=== PATIENT | male | born 1940 | race Caucasian/White ===

== ENCOUNTER → 2018-10-10 | Outpatient (REF) | payer MEDICARE, OTHER ==
[~2018-10-10] MED LIST: ALLOPURINOL300 MG PO; AMLOD/BENAZP1 CA2 PO; AMOXICILLIN500 MG PO; ATENOLOL100 MG PO; AUGMENTIN875TAB PO; BABY ASPIRIN81 MG PO; CELEBREX200 MG PO; EQL IBUPROFEN200 MG PO; FLOMAX0.4 M1 PO; FLUZONE SPLT1 M1 IM; HYDROCHLORO25 MG/TAB PO; LASIX 10 MG10 MG/TA1 PO; LIPITOR20 MG PO; LISINOP/HCTZ1 TA1 PO; LISINOP/HCTZ1 TA2 PO; LISINOPRIL10 MG PO; LOVENOX SC; METFORMIN1000 MG PO; METFORMIN500 M2 PO; NITROGLYCER0.4 MG SL; PLAVIX75 MG PO; PRADAXA150 MG PO; SAW PALMETTO450 MG OR; TENORMIN50 MG PO; TRAMADOL HCL50 MG PO; [UNRECOGNIZED DRUG - OTHER] OR
[2018-10-10 09:13] LABS: HEMATOCRIT 42.4 % (39.0-50.0); HEMOGLOBIN 13.2 g/dl (14.0-18.0); MEAN CELL VOLUME 95.7 fL CALC (80.0-100.0); MEAN CORPUSCULAR HGB 29.8 pG CALC (26.0-32.0); MEAN CORPUSCULAR HGB CONC 31.1 g/L CALC (32.0-36.0); RED BLOOD COUNT 4.43 mill/uL (4.70-6.10); RED CELL DISTRI WIDTH 14.6 % (11.5-15.5)
[2018-10-10 09:43] LABS: ALBUMIN 3.7 g/dL (3.2-5.0); BILIRUBIN, TOTAL 0.8 mg/dL (0.0-1.4); TOTAL PROTEIN 6.8 g/dL (6.3-8.2)
[2018-10-10 09:49] LABS: POTASSIUM 5.2 mmol/l (3.5-5.1)
== END | disposition home or self-care (01) ==
LOC: LAB 07:47
PROVIDERS: ATTEND Internal Medicine
DX: E11.22 Type 2 diabetes mellitus with diabetic chronic kidney disease (principal)

== ENCOUNTER 2019-12-15 | Emergency (ER) | payer MEDICARE, OTHER ==
[~2019-12-15] MED LIST changes: +ASPIRINCHW 81MG PO; -BABY ASPIRIN81 MG PO
[2019-12-15 05:47] LABS: HEMATOCRIT 42.1 % (39.0-50.0); HEMOGLOBIN 13.1 g/dl (14.0-18.0); IMMATURE GRANULOCYTES 0.8 % (0.0-5.0); MEAN CELL VOLUME 92.7 fL CALC (80.0-100.0); MEAN CORPUSCULAR HGB 28.9 pG CALC (26.0-32.0); MEAN CORPUSCULAR HGB CONC 31.1 g/dL CAL (32.0-36.0); NEUT# 9.28 thou/uL (1.82-7.42); RED BLOOD COUNT 4.54 mill/uL (4.70-6.10); RED CELL DISTRI WIDTH 15.9 % (11.5-15.5)
[2019-12-15 05:52] LABS: URINE BILIRUBIN - DIPSTICK NEGATIVE (NEGATIVE); URINE BLOOD DIPSTICK LARGE (NEGATIVE); URINE COLOR YELLOW; URINE GLUCOSE - DIPSTICK NEGATIVE (NEGATIVE); URINE KETONE NEGATIVE (NEGATIVE); URINE NITRITE - DIPSTICK NEGATIVE (Negative); URINE PH 5.5 (4.5-8.0); URINE PROTEIN - DIPSTICK TRACE mg/dL (NEG-TRACE); URINE UROBILINOGEN - DIPSTICK 0.2 E.U./dL (0.2)
[2019-12-15 05:57] LABS: URINE LEUK ESTERASE NEGATIVE (NEGATIVE)
[2019-12-15 05:58] LABS: URINE EPITHELIAL CELLS MODERATE EPI/hpf (0-FEW); URINE RBC 25-50 RBC/hpf (0-5)
[2019-12-15 05:59] LABS: URINE BACTERIA FEW hpf; URINE YEAST FEW hpf
[2019-12-15 06:00] LABS: COCAINE NEGATIVE (NEGATIVE); METHADONE NEGATIVE (NEGATIVE); TETRAHYDROCANNABIONOL NEGATIVE (NEGATIVE); TRICYLIC ANTIDEPRESSANTS POSITIVE (NEGATIVE)
[2019-12-15 06:01] LABS: BARBITURATES NEGATIVE (NEGATIVE); OXCYCODONE NEGATIVE (NEGATIVE)
[2019-12-15 06:11] LABS: ACT PARTIAL THROMBO TIME 35.6 SECONDS (20.0-32.5)
[2019-12-15 06:14] LABS: ALBUMIN 3.8 g/dL (3.2-5.0); ALKALINE PHOSPHATASE 147 u/l (38-126); ANION GAP 10 (6-22 (CALC)); BILIRUBIN, TOTAL 0.9 mg/dL (0.0-1.4); BUN 33 mg/dL (8-23); BUN/CREATININE RATIO 19 (12-20 (CALC)); CARBON DIOXIDE 28 mmol/l (22-30); CHLORIDE 103 mmol/l (95-108); CREATININE 1.8 mg/dL (0.7-1.3); ETHYL ALCOHOL 0 mg/dl (0-30); GFR 37 ML/MIN (>=60 (CALC)); GFR FOR AFR.AMER. 44 ML/MIN (>=60 (CALC)); LIPASE 108 u/l (23-300); POTASSIUM 4.7 mmol/l (3.5-5.1); SGOT/AST 19 u/l (19-48); SODIUM 136 mmol/l (137-146); TOTAL PROTEIN 7.2 g/dL (6.3-8.2)
[2019-12-15 06:16] LABS: INTERNATIONAL NORMALIZED RATIO 1.4 RATIO (0.7-1.3)
[2019-12-15] MEDS ORDERED: NORVASC5 M1 PO (06:17)
[2019-12-15] MEDS ORDERED: ATORVASTATIN CA20 MG PO (06:18)
[2019-12-15] MEDS ORDERED: TAMSULOSIN0.4 MG PO (06:18)
[2019-12-15] MEDS ORDERED: CARVEDILOL25 MG PO (06:19)
[2019-12-15] MEDS ORDERED: FUROSEMIDE20 MG PO (06:20)
[2019-12-15] MEDS ORDERED: CITALOPRAM40 MG PO (06:20)
[2019-12-15] MEDS ORDERED: IMIPRAMINE HCL50 MG PO (06:21)
[2019-12-15] MEDS ORDERED: XARELTO15 MG PO (06:21)
[2019-12-15] MEDS ORDERED: LANTUS100 UNIT/M SC (06:28)
[2019-12-15 06:41] LABS: AMYLASE < 30 u/l (30-110)
== END 2019-12-15 06:30 | disposition short-term general hospital (02) ==
DX: I21.3 ST elevation (STEMI) myocardial infarction of unspecified site (principal); I48.92 Unspecified atrial flutter; E11.9 Type 2 diabetes mellitus without complications; I10 Essential (primary) hypertension; Z86.711 Personal history of pulmonary embolism; Z79.01 Long term (current) use of anticoagulants; Z79.84 Long term (current) use of oral hypoglycemic drugs
CPT/HCPCS: J1644

== ENCOUNTER 2020-01-02 18:30 | Emergency (ER) | payer MEDICARE, OTHER ==
[~2020-01-02 18:30] MED LIST changes: +ATORVASTATIN CA20 MG PO; +CARVEDILOL25 MG PO; +CITALOPRAM40 MG PO; +FUROSEMIDE20 MG PO; +IMIPRAMINE HCL50 MG PO; +LANTUS100 UNIT/M SC; +NORVASC5 M1 PO; +TAMSULOSIN0.4 MG PO; +XARELTO15 MG PO
[2020-01-02 19:27] LABS: HEMATOCRIT 41.7 % (39.0-50.0); HEMOGLOBIN 12.7 g/dl (14.0-18.0); IMMATURE GRANULOCYTES 0.8 % (0.0-5.0); MEAN CELL VOLUME 93.3 fL CALC (80.0-100.0); MEAN CORPUSCULAR HGB 28.4 pG CALC (26.0-32.0); MEAN CORPUSCULAR HGB CONC 30.5 g/dL CAL (32.0-36.0); RED BLOOD COUNT 4.47 mill/uL (4.70-6.10); RED CELL DISTRI WIDTH 15.9 % (11.5-15.5)
[2020-01-02 19:43] LABS: ACT PARTIAL THROMBO TIME 32.2 SECONDS (20.0-32.5); INTERNATIONAL NORMALIZED RATIO 1.3 RATIO (0.7-1.3); PROTHROMBIN TIME 13.4 SECONDS (9.0-12.5)
[2020-01-02 19:48] LABS: ALBUMIN 3.9 g/dL (3.2-5.0); BILIRUBIN, TOTAL 0.7 mg/dL (0.0-1.4); CREATININE 1.8 mg/dL (0.7-1.3); POTASSIUM 4.6 mmol/l (3.5-5.1); TOTAL PROTEIN 7.2 g/dL (6.3-8.2)
[2020-01-02 21:01] LABS: URINE BILIRUBIN - DIPSTICK NEGATIVE (NEGATIVE); URINE BLOOD DIPSTICK LARGE (NEGATIVE); URINE COLOR YELLOW; URINE GLUCOSE - DIPSTICK NEGATIVE (NEGATIVE); URINE KETONE NEGATIVE (NEGATIVE); URINE LEUK ESTERASE NEGATIVE (NEGATIVE); URINE NITRITE - DIPSTICK NEGATIVE (Negative); URINE PH 5.5 (4.5-8.0); URINE PROTEIN - DIPSTICK NEGATIVE (NEG-TRACE); URINE UROBILINOGEN - DIPSTICK 0.2 E.U./dL (0.2)
[2020-01-02 21:16] LABS: URINE RBC 25-50 RBC/hpf (0-5); URINE SQUAMOUS EPITHELIAL CELL FEW EPI/hpf (0-FEW)
[2020-01-02] MEDS ORDERED: TRAMADOL HCL50 MG PO (21:46)
[2020-01-02 22:22] VITALS: BP 141/65
== END 2020-01-02 22:22 | disposition home or self-care (01) ==
LOC: ED 18:30
PROVIDERS: Family Medicine
DX: R10.31 Right lower quadrant pain (principal); E11.9 Type 2 diabetes mellitus without complications; I10 Essential (primary) hypertension; Z86.711 Personal history of pulmonary embolism

== ENCOUNTER 2020-09-09 14:58 | Inpatient (IN) | payer MEDICARE, OTHER ==
[~2020-09-09] VITALS: Ht 182.9 cm; Wt 60.0 kg
--- NOTE | 2020-09-09 15:52 | NUR ---
PT TO RM 15 IA W/C.
[2020-09-09 17:18] LABS: HEMOGLOBIN 9.6 g/dl (14.0-18.0); IMMATURE GRANULOCYTES 0.5 % (0.0-5.0); MEAN CELL VOLUME 98.5 fL CALC (80.0-100.0); MEAN CORPUSCULAR HGB 29.5 pG CALC (26.0-32.0); NEUT# 6.74 thou/uL (1.82-7.42); RED BLOOD COUNT 3.25 mill/uL (4.70-6.10); RED CELL DISTRI WIDTH 15.9 % (11.5-15.5)
--- NOTE | 2020-09-09 17:33 | NUR ---
TO RADIOLOGY VIA WHEELCHAIR.
[2020-09-09 17:35] LABS: ALBUMIN 3.5 g/dL (3.2-5.0); ALKALINE PHOSPHATASE 131 u/l (38-126); BILIRUBIN, TOTAL 0.5 mg/dL (0.0-1.4); BUN 76 mg/dL (8-23); BUN/CREATININE RATIO 16 (12-20 (CALC)); CARBON DIOXIDE 23 mmol/l (22-30); CHLORIDE 107 mmol/l (95-108); CREATININE 4.7 mg/dL (0.7-1.3); GFR 12 ML/MIN (>=60 (CALC)); GFR FOR AFR.AMER. 15 ML/MIN (>=60 (CALC)); SGOT/AST 16 u/l (19-48); SODIUM 138 mmol/l (137-146); TOTAL PROTEIN 6.6 g/dL (6.3-8.2)
[2020-09-09 17:36] LABS: ANION GAP 14 (6-22 (CALC)); POTASSIUM 5.9 mmol/l (3.5-5.1)
--- NOTE | 2020-09-09 18:46 | NUR ---
MD AT BEDSIDE TO DISCUSS RESULTS AND POC.
--- NOTE | 2020-09-09 19:00 | NUR ---
REPORT GIVEN TO JESSIE MILLER.
--- NOTE | 2020-09-09 20:50 | NUR ---
[facility] SKI STTING ON SIDE OF BED DENIES PAIN NO FOCAL DEFICITS [facility] IS 15
--- NOTE | 2020-09-09 21:30 | NUR ---
PHONE REPORT TO NURSE LARRY ON MS
--- NOTE | 2020-09-09 21:35 | NUR ---
PT TRANSPORTED TO CT RM 291 VIA TELE IN STABLE CONDITION
[2020-09-09 21:45] VITALS: BP 145/72
--- NOTE | 2020-09-09 23:00 | NUR ---
KYLE ADMITTED FROM ER VIA WHEELCHAIR WITH ER STAFF IN ATTENDANCE. 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 PATIENT ASSISTED TO BED USING HIS OWN CANE-UNSTEADY ON HIS FEET. PATIENT IS BEING ADMITTED FOR UTI AND TESTED POSITIVE FOR COVID. PATIENT ON ISOLAION IN NEG PRESSURE ROOM. PATIENT WITH IV SITE TO RAC-SITE IS HEALTHY WITH GOOD BLOOD RETURN. IVF NS HUNG AND INFUSING AT 75CC/HR. PATIENT IS ON TELE MONITOR AND SHOWING A-FIB 91. PATIENT WITH HISTORY OF A-FIB. PATIENT WAS SENT TO THE HOSPITAL AFTER SEEING DR. CERVANTES-PATIENT WITH HISTORY OF CKD WITH [facility]. URINE SPEC OBTAINED AND SENT TO LAB-URINE IS BRAULIO AND CLOUDY. PATIENT DOES HAVE SOME DIFFICULTY AT TIME WITH URGENCY AND SPILLING OF THE URINE FROM THE URINAL. PATIENT IS RESTLESS WITH HIGH ANXIETY. MEDICATED FOR C/O PAIN WITH TYLENOL 650 POP ORDERED FOR PAIN. ATTEMPTED TO ORIENT PATIENT TO ROOM AND SURROUNDINGS. INSTRUCTED ON USE OF THE NURSE CALL LIGHT SYSTEM, AND TV REMOTE. PATIENT STATES THAT HE DOES NOT WANT THE TV ON. SPOKE WITH TO GAIN MORE INSIGHT TO PATIENT HEALTH HISTORY AND STATUS. BED ALARM IN PLACE FOR PATIENT SAFETY. ATTEMPTED TO REINFORCE SAFETY PRECAUTIONS. CALL LIGHT IN REACH. WILL CONT TO MONITOR.
[2020-09-10 00:03] VITALS: BP 157/66
[2020-09-10 01:42] LABS: CREATININE 4.6 mg/dL (0.7-1.3)
[2020-09-10 01:43] LABS: POTASSIUM 5.5 mmol/l (3.5-5.1)
[2020-09-10 03:50] VITALS: BP 161/73
[2020-09-10 06:39] LABS: HEMATOCRIT 34.9 % (39.0-50.0); HEMOGLOBIN 10.4 g/dl (14.0-18.0); MEAN CELL VOLUME 99.7 fL CALC (80.0-100.0); MEAN CORPUSCULAR HGB 29.7 pG CALC (26.0-32.0); MEAN CORPUSCULAR HGB CONC 29.8 g/dL CAL (32.0-36.0); RED BLOOD COUNT 3.5 mill/uL (4.70-6.10); RED CELL DISTRI WIDTH 15.8 % (11.5-15.5)
[2020-09-10 06:57] LABS: CHOLESTEROL HDL RATIO 3.5 (<4.4 (CALC)); CREATININE 4.5 mg/dL (0.7-1.3); MAGNESIUM 1.8 mg/dL (1.6-2.3)
[2020-09-10 07:01] LABS: POTASSIUM 6.2 mmol/l (3.5-5.1)
[2020-09-10 08:20] VITALS: BP 150/84
--- NOTE | 2020-09-10 08:20 | NUR ---
ASSESSMENT IS COMPLETED: IV SITE IS FREE FROM REDNESS OR EDEMA. HR IS REG,PULSES ARE STRONG X4, ABD IS SOFT WITH ACTIVEBS,
--- NOTE | 2020-09-10 10:00 | NUR ---
PT WAS FOUND IN THE SIDHU WAY WITH HIS IV POLE AND URINAL.
[2020-09-10 11:31] VITALS: BP 139/72
--- NOTE | 2020-09-10 12:45 | NUR ---
PT CONTINUES TO SIT IN THE CHAIR. NO DISTRESS NOTED. PT TOOK IV SITE OUT. CATHETER INTACT.
[2020-09-10 14:40] VITALS: BP 179/88
[2020-09-10 17:23] LABS: ALBUMIN 3.7 g/dL (3.2-5.0); CREATININE 4.3 mg/dL (0.7-1.3)
--- NOTE | 2020-09-10 19:23 | NUR ---
PT GOT UP FROM THE CHAIR, ATTEMPTING TO GET THE URINAL. AND SLIPPED ON THE FLOOR. NO INJURIES NOTED. UPON ATTEMPTING TO GET BACK ON THE BED SCRAPED HIS KNEE, SMALL AMOUNT OF BLOOD NOTED.
[2020-09-10 19:25] VITALS: BP 174/84
--- NOTE | 2020-09-10 19:59 | NUR ---
ATTEMPTED TO CALL SPOUSE NO ANSWER
--- NOTE | 2020-09-11 | NUR ---
PT UP USING URINAL WITH BUILDING CONSTRUCTION ENGINEER BY HIS SIDE. IV WAS ABLE TO BE PUT IN PT HAND A 22. PLUS PATNT WITH GOOD BLOOD RETURN. ABT FINALLY GIVEN. PT IS IN BED WITH BED ALARM ON. HE DOESNT NEED ANYTHING HE GOES STRAIGHT TO SLEEP. NIMESH CONTINTUE TO MONITOR
--- NOTE | 2020-09-11 00:02 | NUR ---
PT IN BED SLEEPING. HEARING AIDS NOT WORKIND. COMMUNICATING WITH PT WITH WRITTING HE IS NOT IN ANY PAIN FROM FALL. IV HAS NOT BEEN PUT IN YET WAITING ON NURSE TO ATTEMPT PUTTING A NEW LINE. BED ALARM ON AND AT THE LOWEST POSITION. LEAVE PT IN THE BED TO SLEEP. DID CALL AND WAS INFORMED ON FALL. CONTINUING TO MONITOR PT AT THIS TIME.
[2020-09-11 00:15] VITALS: BP 171/75
[2020-09-11 04:00] VITALS: BP 175/83
--- NOTE | 2020-09-11 06:23 | NUR ---
PT USED URINAL. COMPLAINED OFHEACHACHE. PRN TYLENOL GIVEN. HE IS CLEANED UP AND TUCKED BACK INTO BED. WILL CONTINUE TO MONITOR
--- NOTE | 2020-09-11 07:40 | NUR ---
REPORT RECEIVED FROM [facility].
[2020-09-11 08:31] VITALS: BP 140/73
--- NOTE | 2020-09-11 08:31 | NUR ---
PATIENT IS SITTING IN THE SIDE OF THE BED RESTLESS AND HAS TELE AROUND IV LINE. BED ALARM IN PLACE. ASSISTED PATIENT. PATIENT IS A&O X2. ASSISTED PATIENT TO SIT IN THE RECLINER AND PATIENT USE HIS CANE. ASSESSMENT DONE. RESPS EVEN AND UNLABORED. IVF INFUSING WELL. PATIENT HAS EARING AIDS BUT HE IS HARD OF HEARING. SETUP PATIENT FOR BREAKFAST. PATIENT DENIES ANY OTHER NEEDS AT THIS TIME. BED ALARM IN PLACE AND CALL LIGHT IN REACH.
[2020-09-11 11:30] VITALS: BP 153/80
--- NOTE | 2020-09-11 12:15 | NUR ---
PATIENT SET OFF THE BED ALARM AND SITTING IN THE SIDE OF THE BED. PATIENT VOID IN THE FLOOR AND STATED HE NEED TO HAVE A BM. REMNANT SORTER AND I ASSISTED PATIENT TO THE BSC. PATIENT HAD A BM. ASSISTED PATIENT BACK TO BED AND SETUP PATIENT FOR LUNCH. PATIENT DENIES ANY OTHER NEEDS AT THIS TIME. CALL LIGHT IN REACH. BED ALARM IN PLACE.
[2020-09-11 12:30] LABS: HEMATOCRIT 33.3 % (39.0-50.0); MEAN CELL VOLUME 98.5 fL CALC (80.0-100.0); MEAN CORPUSCULAR HGB 29.6 pG CALC (26.0-32.0); RED BLOOD COUNT 3.38 mill/uL (4.70-6.10); RED CELL DISTRI WIDTH 15.8 % (11.5-15.5)
[2020-09-11 12:54] LABS: ALBUMIN 3.4 g/dL (3.2-5.0); BILIRUBIN, TOTAL 0.6 mg/dL (0.0-1.4); CREATININE 3.8 mg/dL (0.7-1.3); TOTAL PROTEIN 6.6 g/dL (6.3-8.2)
[2020-09-11 12:56] LABS: POTASSIUM 5.2 mmol/l (3.5-5.1)
--- NOTE | 2020-09-11 16:00 | NUR ---
PATIENT IS SITTING IN THE SIDE OF THE BED WITH NO S/S OF DISTRESS NOTED. BED ALARM IN PLACE.
[2020-09-11 17:27] VITALS: BP 156/83
--- NOTE | 2020-09-11 18:06 | NUR ---
PT RECEIVED FROM [employer] [facility] [email or web address], SITTING UP AT BEDSIDE, ALERT AND ORIENTED, NO C/O DISCOMFORT, TELE MONITOR IN PLACE, IVF INFUSING, CALL [place]AT[place] IN REACH.
[2020-09-11 19:15] VITALS: BP 150/90
--- NOTE | 2020-09-11 19:30 | NUR ---
PT IS SITTING UP AT BEDSIDE WITH NO S/S OF DISTRESS. ABLE TO MAKE NEEDS KNOWN. RESPIRATION IS EVEN AND NONLABORED. FLUID INATKE GOOD AND NO SWALLOWING CONCERNS NOTED. EDUCATION DONE WITH THIS PT TO USE CALL LIGHT FOR TRANSFERS AND HE STATED HE UNDERSTOOS AND WAS ABLE TO RETURN DEMONSTRATION ON HOW TO USE HIS CALL LIGHT. CALL LIGHT IS WITHIN REACH. BED IN LOWEST POSITION AND CAMERA IN PLACE FOR INCREASED SUPERVISION. WILLL CONTINUE TO OBSERVE.
--- NOTE | 2020-09-12 00:45 | NUR ---
PT IN BED WITH EYES CLOSED. NO S/SF ISTRESS/DISCOMFORT. IV FLUIDS RUNNING WITH NO COMPLICATIONS NOTED. CALL LIGHT WITHIN REACH AND BED IN LOW POSITION. WILL CONTINUE TO OBSERVE.
[2020-09-12 01:15] VITALS: BP 144/65
[2020-09-12 05:00] VITALS: BP 149/59
[2020-09-12 05:36] LABS: HEMATOCRIT 32.7 % (39.0-50.0); HEMOGLOBIN 9.9 g/dl (14.0-18.0); IMMATURE GRANULOCYTES 0.4 % (0.0-5.0); MEAN CELL VOLUME 97.6 fL CALC (80.0-100.0); MEAN CORPUSCULAR HGB 29.6 pG CALC (26.0-32.0); MEAN CORPUSCULAR HGB CONC 30.3 g/dL CAL (32.0-36.0); NEUT# 5.78 thou/uL (1.82-7.42); RED BLOOD COUNT 3.35 mill/uL (4.70-6.10); RED CELL DISTRI WIDTH 15.7 % (11.5-15.5)
[2020-09-12 06:00] LABS: ALBUMIN 3.4 g/dL (3.2-5.0); BILIRUBIN, TOTAL 0.5 mg/dL (0.0-1.4); CREATININE 3.5 mg/dL (0.7-1.3); TOTAL PROTEIN 6.5 g/dL (6.3-8.2)
--- NOTE | 2020-09-12 06:13 | NUR ---
PT IN BED WITH EYES CLOSED. NO S/S OF DISTRESS. MEDICATIONS GIVEN AND TOLERATED WELL. CONTINUES ON IV FLUIDS AND TOLERATING WELL WITH NO COMPLICATIONS NOTED. HEPARIN GIVEN PRESCRIBED AND NO S/S OF BLEEDING OR HEMORRHAGE. PT USES URINAL WITH NO COMPLICATIONS NOTED. CALL LIGHT WITHIN REACH. WILL CONTINUE TO OBSERVE
[2020-09-12 06:23] LABS: URINE BILIRUBIN - DIPSTICK NEGATIVE (NEGATIVE); URINE BLOOD DIPSTICK LARGE (NEGATIVE); URINE CLARITY SL CLOUDY; URINE COLOR YELLOW; URINE GLUCOSE - DIPSTICK NEGATIVE (NEGATIVE); URINE KETONE NEGATIVE (NEGATIVE); URINE LEUK ESTERASE NEGATIVE (Negative); URINE NITRITE - DIPSTICK NEGATIVE (Negative); URINE PH 5.5 (4.5-8.0); URINE PROTEIN - DIPSTICK TRACE mg/dL (NEG-TRACE); URINE SPECIFIC GRAVITY 1.015; URINE UROBILINOGEN - DIPSTICK 0.2 E.U./dL (0.2)
[2020-09-12 06:42] LABS: URINE BACTERIA FEW hpf; URINE RBC 25-50 RBC/hpf (0-5); URINE SQUAMOUS EPITHELIAL CELL FEW EPI/hpf (0-FEW); URINE YEAST FEW hpf
--- NOTE | 2020-09-12 07:50 | NUR ---
PATIENT SITTING AT BEDSIDE AT THIS TIME PATIENT DENIES ANY NEEDS OR PAIN. BUGGY MAN DONE SEE INTERVENTIONS. PATIENT DENIES SHORTNESS OF BREATH AND AN OR COUGH AT THIS TIME. PATIENT DOES EXHIBIT LOWER LEG EDEMA. CALL LIGHT IS WITHIN REACH AND SIDERAILS ARE UP X 2 AND BED ALARM AND CAMERA ON PATIENT AT THIS TIME FOR SAFETY.
[2020-09-12 07:55] VITALS: BP 187/91
[2020-09-12 11:05] VITALS: BP 164/67
--- NOTE | 2020-09-12 12:25 | NUR ---
PATIENT SITTING IN CHAIR AT THIS TIME EATING LUNCH. PATIENT DENIES ANY PAIN OR NEEDS CURRENTLY. CALL LIGHT WITHIN REACH.
[2020-09-12 15:10] VITALS: BP 154/72
--- NOTE | 2020-09-12 16:20 | NUR ---
PATIENT SITTING UP IN CHAIR AT THIS TIME STATES HE HAS NO PAIN DENIES ANY SHORTNESS OF BREATH. CALL LIGHT WITHIN REACH.
[2020-09-12 19:00] VITALS: BP 142/82
--- NOTE | 2020-09-12 20:00 | NUR ---
PT IN CHAIR SITTING AND WATCHING TV. FLUID STILL RUNNING AT THIS TIME. PT STILL HAVING DIFFICULY HEARING EVEN WITH HEARING AIDS. COMMUNICATE BESSIE HE BEST OF THIS NURSE ABILITY. CAMERA UP AND RUNNING. TELE STILL ON. CONTINUING TO MONITOR. CALL LIGHT WITHIN RANGE
[2020-09-13] VITALS: BP 148/84
--- NOTE | 2020-09-13 | NUR ---
PT IN BED SLEEPING PEACEFULLY. NO COMPLAINT OF PAIN CALL LIGHT AND TABLE WITHIN REACH WILL CONTINUE TO MONITOR.
[2020-09-13 04:00] VITALS: BP 171/91
[2020-09-13 06:33] LABS: ALBUMIN 3.8 g/dL (3.2-5.0); CREATININE 3.4 mg/dL (0.7-1.3); POTASSIUM 4.9 mmol/l (3.5-5.1)
--- NOTE | 2020-09-13 07:35 | NUR ---
REPORT RECEIVED; PT'S BED ALARM SOUNDING AND PT FOUND SITTING UP ON EDGE OF BED. REQUESTING HEARING AID AND TO GET UP TO BEDSIDE CHAIR. PT ASSISTED WITH HEARING AID, NON SKID SOCKS PUT ON FEED AND UP TO CHAIR WITH STAND BY ASSIST; UNSTEADY. ALERT AND ORIENTED X3; PT VERY HARD OF HEARING WITH HEARING AID IN PLACE; UNABLE TO HEAR EVEN WHEN YELLING DUE TO MASK; COMMUNITCATED WITH WITH PEN AND PAPER; PT QUICK TO REPOND TO WRITTEN QUESTIONS. DENIES ANY PAIN; RESPIRATIONS EVEN AND UNLABROED; SOB WITH EXERTION WHICH HE STATES IS NOT NEW DUE TO HIS HISTORY; REPORTS THAT HE IS BREATHING MUCH BETTER NOW THAN PRIOR TO ADMISSION TO HOSPITAL; RESTING ON ROOM AIR. IV SITE APPEARS HEALTHY AND FLUSHES. TELE ON. MEDICATIONS GIVEN AND REVIEWED; PT HAS DIFFICULTY UNDERSTANDING MEDS ASKING WHAT HE SHOULD STOP AND CONTINUE AT HOME; EXPLAINED THAT WE WOULD EXPLAIN AND GIVEN WRITTEN DIRECTIONS ON DISCHARGE. POC REVIEWED; PT ENCOURAGED TO VERBALIZE CONCERNS; STATES UNDERSTANDING. SAFETY MEASURES IN PLACE. CALL LIGHT WITHIN REACH.
[2020-09-13 07:43] VITALS: BP 139/85
--- NOTE | 2020-09-13 10:48 | NUR ---
DR. MOREIRA AND DANY SIMS AT BEDSIDE.
[2020-09-13] MEDS ORDERED: KEFLEX250 MG PO (11:29)
[2020-09-13 11:45] VITALS: BP 174/84
--- NOTE | 2020-09-13 15:05 | NUR ---
Discharge instructions given. Patient verbalizes understanding of same. Discharged in stable condition via Wheelchair to Home with [facility] with spouse. All belongings sent with pt.
== END 2020-09-13 15:05 | disposition home health service (06) | DRG 682 ==
LOC: ED 14:58 → ED-I 18:26 → ED 18:38 → MS2 18:39
PROVIDERS: Family Medicine; Internal Medicine; Internal Medicine Nephrology; Nurse Practitioner; Nurse Practitioner Family; Physician Assistant; ADMIT Internal Medicine; ATTEND Internal Medicine
DX: N17.0 Acute kidney failure with tubular necrosis (principal); U07.1 COVID-19; N39.0 Urinary tract infection, site not specified; E87.2 Acidosis; I13.0 Hypertensive heart and chronic kidney disease with heart failure and stage 1 through stage 4 chronic kidney disease, or unspecified chronic kidney disease; E87.5 Hyperkalemia; K59.00 Constipation, unspecified; E11.22 Type 2 diabetes mellitus with diabetic chronic kidney disease; N18.30 Chronic kidney disease, stage 3 unspecified; I50.9 Heart failure, unspecified; I25.10 Atherosclerotic heart disease of native coronary artery without angina pectoris; E78.5 Hyperlipidemia, unspecified; D63.1 Anemia in chronic kidney disease; E86.9 Volume depletion, unspecified; N20.0 Calculus of kidney; F32.9 Major depressive disorder, single episode, unspecified; N40.0 Benign prostatic hyperplasia without lower urinary tract symptoms; B96.4 Proteus (mirabilis) (morganii) as the cause of diseases classified elsewhere; Z95.1 Presence of aortocoronary bypass graft; Z90.5 Acquired absence of kidney; Z86.711 Personal history of pulmonary embolism; Z87.442 Personal history of urinary calculi; Z87.891 Personal history of nicotine dependence; Z79.01 Long term (current) use of anticoagulants; Z79.4 Long term (current) use of insulin; Z85.528 Personal history of other malignant neoplasm of kidney
CPT/HCPCS: G0378

== ENCOUNTER 2021-06-30 23:47 | Emergency (ER) | payer MEDICARE, OTHER ==
[~2021-06-30] VITALS: Ht 182.9 cm; Wt 132.0 kg
[~2021-06-30 23:47] MED LIST changes: +KEFLEX250 MG PO
[2021-07-01] MEDS ORDERED: ALLOPURINOL300 MG PO (01:39)
[2021-07-01] MEDS ORDERED: GLUCOSAMINE CHO1 CA3 PO (01:40)
[2021-07-01] MEDS ORDERED: CLOPIDOGREL75 MG PO (01:45)
[2021-07-01] MEDS ORDERED: NITROGLYCER0.2 MG/H1 TD (01:45)
[2021-07-01] MEDS ORDERED: TRAMADOL HCL50 MG PO (03:11)
[2021-07-01] MEDS ORDERED: TORADOL PO (03:11)
[2021-07-01 03:23] VITALS: BP 164/85
== END 2021-07-01 03:37 | disposition home or self-care (01) ==
LOC: ED 23:47
DX: S52.502A Unspecified fracture of the lower end of left radius, initial encounter for closed fracture (principal); S80.811A Abrasion, right lower leg, initial encounter; S80.211A Abrasion, right knee, initial encounter; S20.211A Contusion of right front wall of thorax, initial encounter; I10 Essential (primary) hypertension; E11.9 Type 2 diabetes mellitus without complications; W01.0XXA Fall on same level from slipping, tripping and stumbling without subsequent striking against object, initial encounter; Z79.4 Long term (current) use of insulin

== ENCOUNTER 2021-07-04 09:56 | Emergency (ER) | payer MEDICARE, OTHER ==
[~2021-07-04] VITALS: Ht 182.9 cm; Wt 131.8 kg
[~2021-07-04 09:56] MED LIST changes: +CLOPIDOGREL75 MG PO; +GLUCOSAMINE CHO1 CA3 PO; +NITROGLYCER0.2 MG/H1 TD; +TORADOL PO
[2021-07-04 10:31] LABS: IMMATURE GRANULOCYTES 0.7 % (0.0-5.0); MEAN CELL VOLUME 99.4 fL CALC (80.0-100.0); MEAN CORPUSCULAR HGB 31.1 pG CALC (26.0-32.0); MEAN CORPUSCULAR HGB CONC 31.3 g/dL CAL (32.0-36.0); NEUT# 8.27 thou/uL (1.82-7.42); RED BLOOD COUNT 1.8 mill/uL (4.70-6.10)
[2021-07-04 10:39] LABS: BILIRUBIN, TOTAL 0.2 mg/dL (0.0-1.4); BUN 72 mg/dL (8-23); BUN/CREATININE RATIO 25 (12-20 (CALC)); CHLORIDE 120 mmol/l (95-108); GFR 20 ML/MIN (>=60 (CALC)); GFR FOR AFR.AMER. 24 ML/MIN (>=60 (CALC)); SGOT/AST 10 u/l (19-48); SODIUM 140 mmol/l (137-146)
[2021-07-04 10:44] LABS: ANION GAP 9 (6-22 (CALC)); CARBON DIOXIDE 15 mmol/l (22-30); POTASSIUM 4.4 mmol/l (3.5-5.1)
[2021-07-04 10:45] LABS: ALBUMIN 1.6 g/dL (3.2-5.0); ALKALINE PHOSPHATASE 49 u/l (38-126); TOTAL PROTEIN 3.8 g/dL (6.3-8.2)
[2021-07-04 10:48] LABS: HEMATOCRIT 17.9 % (39.0-50.0); HEMOGLOBIN 5.6 g/dl (14.0-18.0)
[2021-07-04 10:51] LABS: MYOGLOBIN 106 ng/mL (0 - 121)
[2021-07-04 14:19] VITALS: BP 99/51
== END 2021-07-04 13:40 | disposition short-term general hospital (02) ==
LOC: ED 09:56
PROVIDERS: Emergency Medicine
PROC: 30243N1 Transfusion of Nonautologous Red Blood Cells into Central Vein, Percutaneous Approach (ICD-10-PCS; principal; 2021-07-04)
PROC: 30243N1 Transfusion of Nonautologous Red Blood Cells into Central Vein, Percutaneous Approach (ICD-10-PCS; 2021-07-04)
PROC: 02HV33Z Insertion of Infusion Device into Superior Vena Cava, Percutaneous Approach (ICD-10-PCS; 2021-07-04)
DX: K92.2 Gastrointestinal hemorrhage, unspecified (principal); D64.9 Anemia, unspecified; K56.41 Fecal impaction; E83.42 Hypomagnesemia; I95.9 Hypotension, unspecified; R00.1 Bradycardia, unspecified; E83.51 Hypocalcemia; E11.9 Type 2 diabetes mellitus without complications; I10 Essential (primary) hypertension; I71.4 Abdominal aortic aneurysm, without rupture; Z79.4 Long term (current) use of insulin; Z95.1 Presence of aortocoronary bypass graft; Z95.828 Presence of other vascular implants and grafts
CPT/HCPCS: J2354; P9016